=== PATIENT | male | born 1955 | race Caucasian/White ===

== ENCOUNTER 2017-06-21 05:55 | Inpatient (IN) ==
--- NOTE | 2017-06-18 09:15 | EKG Report ---
Stationary ECG Study [facility] Test Date: 06/18/2017 9:16:38 AM Pat Name: MALENA HENAO Department: Room: Gender: M Manager Area: GRICELDA RAI : 1955 Requested by: Jitendra Bey Order Number: [id number] Reading MD: GALE BECK Intervals [place] Rate: 67 P: 51 NE: 140 QRS: 65 QRSD: 134 T: 19 QT: 382 QTc: 398 Interpretive Statements SINUS RHYTHM RIGHT BUNDLE BRANCH BLOCK Electronically Signed On 06-18-17 17:04:34 CDT by GALE BECK [email or web address]
--- NOTE | 2017-06-18 09:17 | XRay Report ---
XR chest 2V Indication: Respiratory preoperative evaluation Comparison: 11 June 2017 Findings: The heart and mediastinum are normal in size and configuration. The pulmonary vascularity is normal in caliber. No lung infiltrates, effusions, pneumothorax or other abnormality is demonstrated. Impression: Normal chest x-ray PROCEDURE INTERPRETED AT [facility] DEPARTMENT OF RADIOLOGY Final Report Signed by: Dr. Osbaldo Mcadams
[2017-06-18 09:33] LABS: Basophils % 0.2 % (0.0-0.8); Eosinophils % 0.2 % (0.00-10.9); Hematocrit 37.7 VOL% (42.0-52.0); Hemoglobin 12.1 GM/DL (14.0-18.0); Immature Granulocytes % 2.1 %; Immature Granulocytes Absolute 0.27 #; Lymphocytes # 1.7 10*3/uL (1.4-4.0); Lymphocytes % 13.8 % (21.2-54.2); Mean Corpuscular HGB Conc 32.1 GM/DL (32-36); Mean Corpuscular Hemoglobin 26 PG (27-34); Mean Corpuscular Volume 80.4 FL (87-102); Mean Platelet Volume 9.6 FL (9.6-12.0); Monocytes # 0.7 10*3/uL (0.11-0.8); Monocytes % 5.5 % (1.7-12.7); Neutrophils # 9.9 10*3/uL (1.4-7.4); Neutrophils % 78.2 % (38.7-73.9); Platelet Count 243 T/CUMM (130-400); Red Blood Count 4.69 MC/CUMM (3.8-5.5); Red Cell Distribution Width 14.2 % (9.3-17.3); White Blood Count 12.6 T/CUMM (4-12)
[2017-06-18 10:14] LABS: Alanine Aminotransferase 31 U/L (16-61); Albumin 3.3 G/DL (3.4-5.0); Alkaline Phosphatase 59 U/L (45-117); Aspartate Amino Transferase 16 U/L (0-37); Bilirubin,Total < 0.39 MG/DL (0.2-1.0); Blood Urea Nitrogen 16 MG/DL (7-18); Calcium 8.2 MG/DL (8.5-10.1); Glucose 109 MG/DL (74-106); Osmolality,Calculated 274.8 MOS/KG (273-304); Potassium 3.7 MMOL/L (3.5-5.1); Sodium 137 MMOL/L (136-145); Total Protein 6.2 G/DL (6.4-8.3)
[~2017-06-21 05:55] MED LIST: ERTAPENEM 1,000 MG in SODIUM CHLORIDE 0.9% 100 ML IV ONE
[2017-06-21] MEDS ORDERED: ALVIMOPAN 12 MG CAPSULE PO ONE (06:00)
[2017-06-21] MEDS ORDERED: ERTAPENEM 1,000 MG in SODIUM CHLORIDE 0.9% 100 ML IV ONE (06:00)
[2017-06-21] MEDS ORDERED: ERTAPENEM 1,000 MG VIAL ONE (06:03)
[2017-06-21] MEDS ORDERED: ALVIMOPAN 12 MG CAPSULE ONE (06:03)
[2017-06-21] MEDS ORDERED: SODIUM CHLORIDE 0.9% 100 ML IV ONE (06:07)
[2017-06-21] MEDS: LACTATED RINGERS 1,000 ML IV SCH ×3 (06:45→19:17)
[2017-06-21] MEDS ORDERED: SCOPOLAMINE 1.5 MG PATCH TRANSDERM ONE (06:46)
[2017-06-21] MEDS ORDERED: FAMOTIDINE 20 MG/2 ML VIAL IV ONE (06:46)
[2017-06-21] MEDS ORDERED: FAMOTIDINE 20 MG/2 ML VIAL IV STA (06:47)
[2017-06-21] MEDS ORDERED: SCOPOLAMINE 1.5 MG PATCH TRANSDERM STA (06:47)
--- NOTE | 2017-06-21 06:49 | History and Physical Update ---
History and Physical Update - History and Physical H&P was reviewed, the patient examined and there: are no changes in the patients condition since last H&P was completed. - Dictation Physical: refer to scanned H&P
[2017-06-21] MEDS ORDERED: METOCLOPRAMIDE 10 MG/2 ML VIAL ONE (06:55)
[2017-06-21] MEDS ORDERED: HYDROCORTISONE 100 MG VIAL ONE (06:57)
[2017-06-21] MEDS ORDERED: TISSUE ADHESIVE 1 EACH APPLICATOR TOP ONE (09:05)
[2017-06-21] MEDS ORDERED: SUGAMMADEX 200 MG/2 ML VIAL IV ONE (09:20)
[2017-06-21] MEDS ORDERED: DESFLURANE 1 UNIT/15 MINUTE INH ONE (09:47)
[2017-06-21] MEDS ORDERED: MIDAZOLAM 2 MG/2 ML VIAL ONE (09:47)
[2017-06-21] MEDS ORDERED: SUCCINYLCHOLINE 200 MG/10 ML VIAL ONE (09:48)
[2017-06-21] MEDS ORDERED: ACETAMINOPHEN 1,000 MG/100 ML VIAL IV ONE (09:48)
[2017-06-21] MEDS ORDERED: LACTATED RINGERS 2,000 ML IV ONE (09:48)
[2017-06-21] MEDS ORDERED: fentaNYL 100 MCG/2 ML VIAL ONE (09:48)
[2017-06-21] MEDS ORDERED: ROCURONIUM 100 MG/10 ML VIAL IV ONE (09:48)
[2017-06-21] MEDS ORDERED: ONDANSETRON 4 MG/2 ML VIAL ONE (09:48)
[2017-06-21] MEDS ORDERED: LABETALOL 100 MG/20 ML VIAL IV ONE (09:48)
[2017-06-21] MEDS ORDERED: PROPOFOL 200 MG/20 ML VIAL IV ONE (09:49)
[2017-06-21] MEDS ORDERED: HYDROmorphone 2 MG/1 ML VIAL ONE (10:15)
[2017-06-21] MEDS: HYDROmorphone 2 MG/1 ML VIAL IV PRN ×4 (10:16→10:31)
--- NOTE | 2017-06-21 10:18 | Operative Note ---
Date of procedure: 06/21/17 Pre-op diagnosis: Right colon cancer Post-op diagnosis: same Procedure: Preoperative diagnosis Right colon cancer Postoperative diagnosis Same Procedures performed 1. Robotic assisted laparoscopic lysis of adhesions 2. Robotic assisted laparoscopic right colectomy Complications None apparent Specimen Right colon Findings There were adhesions in the abdomen between the omentum and the lower abdomen and right lower quadrant that were taken down with sharp dissection. Medial to lateral dissection was performed and the specimen was opened on the back table with adequate margins. There was no evidence of metastatic disease in the liver Blood loss 25 mL Anesthesia GETA Indications Right colon cancer Description of procedure The patient was taken to the operating room and transferred to the operating table in supine position. Pressure points were padded and SCDs were placed lower extremities. General endotracheal anesthesia was administered. A Nash catheter was placed with clear urine output. The patient was prepped and draped with chlorhexidine. Preoperative antibiotics were administered and a timeout was performed. The abdomen was entered in a supraumbilical paramedian location on the left side of the abdominal wall with a Veress needle. An 8 mm skin incision was made with an 11 blade scalpel and penetrating towel clips were used to grasp the abdominal wall skin Veress needle was used to enter the peritoneal cavity confirmed by double click technique. Aspiration was negative. Saline drop test confirmed intraperitoneal location. The Veress needle was used to insufflate the abdominal cavity to 15 mmHg with an initial pressure of 2 mmHg. The Veress needle was removed and a robotic 8 mm trocar was placed blindly. Laparoscope was inserted. There is no evidence of Veress needle or trocar injury. Diagnostic laparoscopy was performed. There was no evidence of Veress needle or trocar injury. There is no evidence of metastatic disease in the liver or peritoneum. The 12 mm left upper quadrant abdominal trochars placed under direct visualization after local anesthetic was administered and the 5 mm social science research assistant trocar was placed in the left lower quadrant. The 8 mm left lower quadrant trocar was then placed. The robot was docked. The cecum was retracted and the ileocolic pedicle was identified and divided with a vascular stapler. The duodenum was visualized during this ligation. Adhesions were taken down with sharp dissection. Medial to lateral dissection was performed with visualization of the duodenum and the dissection was then carried up towards the transverse colon. The colon was transected after the omentum was taken off the colon with electrocautery using a PEACE stapler. The lateral attachments of the colon were then divided down to the pelvis. The terminal ileum was transected also with a PEACE stapler. An intracorporeal anastomosis was completed by making an enterotomy and colotomy in the GI stapler was used to staple the anastomosis side to side. The enterotomy was closed with the PEACE stapler. The mesentery was inspected and was not twisted. The mesenteric defect was left open. The robot was undocked. The specimen was extracted through a left upper quadrant incision extended from the 12 mm trocar site through an Alfonso retractor. The fascial incision was closed with a 0 non-looped PDS suture in 2 layers. The skin incisions were closed with 4-0 monocryl sutures. The patient's Nash was removed and she was awakened from anesthesia and transferred to recovery. Postoperative plan Advance diet as tolerated Pain control Anesthesia: AZRA Surgeon / Physician: Jitendra Bey Estimated blood loss: minimal Specimens: other (right colon) Condition: stable Disposition: PACU Results - Labs CBC & BMP: 06/18/17 09:22 06/18/17 09:22 Discharge Plan - Discharge Medications No Action Omeprazole [Prilosec] 20 mg PO QAM Cholecalciferol (Vitamin D3) [Vitamin D3] 1,000 unit PO QAM Krill/[place]-3/Dha/Epa/Lipids [Krill Oil 300 mg Softgel] 1 each PO DAILY Calcium Carbonate [Calcium] 500 mg PO QAM Alendronate [Fosamax] 70 mg PO Q7DAY Levofloxacin Tab [Levaquin Tab] 750 mg PO DAILY #10 tablet predniSONE TAB [PredniSONE] 20 mg PO DAILY #15 tablet - Follow Up or Referral - Forms/Instructions
--- NOTE | 2017-06-21 10:20 | Anesthesia Post-Op ---
Anesthesia Post OP - Post Ansesthetic Evaluation Patient seen in post op: Yes Resp: within normal limits CV: within normal limits Mental: within normal limits Temp: within normal limits [id number]: within normal limits Nausea and Vomiting: within normal limits Pain: within normal limits
[2017-06-21] MEDS: MORPHINE 10 MG/1 ML VIAL IV PRN ×2 (11:00→13:00)
[2017-06-21] MEDS ORDERED: KETOROLAC 30 MG/1 ML VIAL IV ONE (14:03)
[2017-06-21] MEDS ORDERED: PROMETHAZINE 25 MG/1 ML VIAL IM PRN (15:03)
[2017-06-21] MEDS ORDERED: ONDANSETRON 4 MG/2 ML VIAL IV PRN (15:03)
[2017-06-21] MEDS ORDERED: HYDROmorphone 2 MG/1 ML VIAL IV PRN (15:03)
--- NOTE | 2017-06-21 18:30 | Event Note ---
Courtesy visit. Patient seen after right hemicolectomy done earlier today. Surgery findings reviewed. He is comfortable at present. Please call if needed.
[2017-06-21] MEDS: ALVIMOPAN 12 MG CAPSULE PO SCH (20:50)
[2017-06-21] MEDS: KETOROLAC 15 MG/1 ML VIAL IV SCH (20:50)
[2017-06-22] MEDS: KETOROLAC 15 MG/1 ML VIAL IV SCH (02:24)
[2017-06-22] MEDS: LACTATED RINGERS 1,000 ML IV SCH (03:30)
[2017-06-22 06:29] LABS: Basophils % 0.2 % (0.0-0.8); Eosinophils # 0.1 10*3/uL (0.0-0.87); Eosinophils % 0.8 % (0.00-10.9); Hematocrit 30.5 VOL% (42.0-52.0); Hemoglobin 9.8 GM/DL (14.0-18.0); Immature Granulocytes % 0.5 %; Immature Granulocytes Absolute 0.06 #; Lymphocytes # 1.8 10*3/uL (1.4-4.0); Lymphocytes % 16.1 % (21.2-54.2); Mean Corpuscular HGB Conc 32.1 GM/DL (32-36); Mean Corpuscular Hemoglobin 26 PG (27-34); Mean Corpuscular Volume 80.9 FL (87-102); Mean Platelet Volume 9.8 FL (9.6-12.0); Monocytes % 9.4 % (1.7-12.7); Platelet Count 159 T/CUMM (130-400); Red Blood Count 3.77 MC/CUMM (3.8-5.5); Red Cell Distribution Width 14.3 % (9.3-17.3)
[2017-06-22 06:57] LABS: Osmolality,Calculated 278.5 MOS/KG (273-304); Potassium 4.4 MMOL/L (3.5-5.1)
--- NOTE | 2017-06-22 07:20 | Event Note ---
General Surgery Progress Note Chief complaint This patient is a 62-year-old man admitted following robotic assisted laparoscopic right colectomy for colon cancer on 06/21/2017 Interval history No events overnight. Patient is tolerating his diet without any nausea or vomiting. He has walked in the hallway twice. Vital signs are normal. He is passing some gas but has not had a bowel movement yet. Hemoglobin is down to 9.8 this morning from 12 preop. Physical exam The patient is afebrile with normal vital signs Chest is clear Heart is regular Abdomen is soft and appropriately tender. There is bruising around the incisions but no erythema or drainage. Bowel sounds are hypoactive. The abdomen is nondistended. Labs Reviewed, as above Imaging None new Assessment and plan Repeat hemoglobin at noon Discharge home if tolerates breakfast and repeat hemoglobin at noon is stable
[2017-06-22] MEDS: ALVIMOPAN 12 MG CAPSULE PO SCH (08:55)
[2017-06-22] MEDS ORDERED: CALCIUM (CARBONATE) 500 MG TABLET PO SCH (09:00)
[2017-06-22] MEDS ORDERED: ENOXAPARIN 40 MG/0.4 ML SYRINGE SUBCUT SCH (09:00)
[2017-06-22] MEDS ORDERED: PANTOPRAZOLE 40 MG TABLET PO SCH (09:00)
[2017-06-22] MEDS ORDERED: EPA PO SCH (09:00)
[2017-06-22] MEDS ORDERED: DHA PO SCH (09:00)
[2017-06-22] MEDS ORDERED: LIPIDS PO SCH (09:00)
[2017-06-22] MEDS ORDERED: OMEGA PO SCH (09:00)
[2017-06-22] MEDS ORDERED: CHOLECALCIFEROL 1,000 UNIT TABLET PO SCH (09:00)
[2017-06-22] MEDS ORDERED: [UNRECOGNIZED DRUG - OTHER] PO SCH (09:00)
[2017-06-22] MEDS ORDERED: KRILL PO SCH (09:00)
[2017-06-22 12:26] LABS: Hematocrit 30.2 VOL% (42.0-52.0); Hemoglobin 9.7 GM/DL (14.0-18.0)
--- NOTE | 2017-06-22 14:30 | Discharge Summary ---
Hospital Course - Hospital Course Hospital Course: This patient was admitted following robotic assisted laparoscopic right colectomy and he did well postoperatively. He was tolerating his diet and his hemoglobin stabilized and he was discharged home Specialty Discharge - Follow Up or Referrals Follow up with: Jitendra Bey MD [Physician] - 07/07/17 3:00 pm Discharge Plan - Discharge Data Disposition: Disch To Home/Self Care Condition at Discharge: Discharge Diet: advance to your usual diet Activity: no lifting Hygiene: may shower Weight Bearing at Discharge: weight bear as tolerated Driving: other (Do not drive or operate heavy machinery for at least 24 hours and after you are off of narcotic pain medications.) Contact your physician if you experience:: fever over 101, Difficulty voiding, Redness or swelling, Nausea/Vomiting, Shortness of breath, Bleeding, pain uncontrolled by pain medications Wound / Dressing Care Instructions: It is okay to shower. Do not scrub the incision aggressively or submerge it under water. - Discharge Medications New HYDROcodone/ACETAMIN 7.5-325 [Hurt 7.5-325] 1 tablet PO Q4H PRN #30 tablet PRN Reason: Pain Moderate (4-7) Continue Omeprazole [Prilosec] 20 mg PO QAM Cholecalciferol (Vitamin D3) [Vitamin D3] 1,000 unit PO QAM Krill/[place]-3/Dha/Epa/Lipids [Krill Oil 300 mg Softgel] 1 each PO DAILY Calcium Carbonate [Calcium] 500 mg PO QAM Alendronate [Fosamax] 70 mg PO Q7DAY - Follow Up or Referral Follow Up: Jitendra Bey MD [Physician] - 07/07/17 3:00 pm - Forms/Instructions Instructions: Low Fiber Diet (GEN), Colectomy (DC) Exam - Constitutional Vitals: Period Temp Pulse Resp BP Sys/[place] Pulse Ox Last 24 Hr 97.5 F-100.9 F 59-89 16-20 100-133/51-78 92-100 General appearance: no acute distress, over weight - Head Head exam: Present: normal inspection, normocephalic - Eye Eye exam: Present: EOMI Pupils: Present: ALENA - ENT ENT exam: Present: normal exam - Neck Neck exam: Present: normal inspection - Respiratory Respiratory exam: Present: clear to auscultation bilaterally. Absent: accessory muscle use, chest wall tenderness - Cardiovascular Cardiovascular exam: Present: regular rate and rhythm. Absent: systolic murmur , tachycardia - GI/Abdominal GI/Abdominal exam: Present: tenderness (Expected postoperative tenderness), soft. Absent: rebound - Extremities Exam Extremities exam: Present: normal inspection, normal capillary refill - Back Exam Back exam: Present: normal inspection - Neurological Exam Neurological exam: Present: alert, oriented X3 - Psychiatric Psychiatric exam: Present: normal affect, normal mood - Skin Skin exam: Present: normal color, warm Discharge Results Labs on day of discharge: Labs from last 24 hours 06/22/17 06/22/17 06/22/17 12:06 06:07 06:07 WBC 11.0 RBC 3.77 L Hgb 9.7 L 9.8 L D Hct 30.2 L 30.5 L MCV 80.9 L MCH 26 L MCHC 32.1 RDW 14.3 Plt Count 159 D MPV 9.8 Neut % (Auto) 73.0 Lymph % (Auto) 16.1 L [place] % (Auto) 9.4 Eos % (Auto) 0.8 Baso % (Auto) 0.2 Neut # (Auto) 8.0 H Lymph # (Auto) 1.8 [place] # (Auto) 1.0 H Eos # (Auto) 0.1 Baso # (Auto) 0.0 Immature Gran % 0.5 Nucleated RBC % 0.0 Immature Gran # 0.06 Nucleated RBCs # 0.00 Immature Plt Fraction 0.0 Sodium 139 Potassium 4.4 Chloride 106 Carbon Dioxide 29 Anion Gap 8.4 BUN 17 Creatinine 1.00 GFR Calculation 97 BUN/Creatinine Ratio 17.00 Glucose 92 POC Glucose Calculated Osmolality 278.5 Calcium 8.0 L 06/21/17 16:02 WBC RBC Hgb Hct MCV MCH MCHC RDW Plt Count MPV Neut % (Auto) Lymph % (Auto) [place] % (Auto) Eos % (Auto) Baso % (Auto) Neut # (Auto) Lymph # (Auto) [place] # (Auto) Eos # (Auto) Baso # (Auto) Immature Gran % Nucleated RBC % Immature Gran # Nucleated RBCs # Immature Plt Fraction Sodium Potassium Chloride Carbon Dioxide Anion Gap BUN Creatinine GFR Calculation BUN/Creatinine Ratio Glucose POC Glucose 135 H Calculated Osmolality Calcium DS: Provider Date of admission: 06/21/17 05:55 Primary care physician: Bro Lawson MD Attending physician on admission: Jitendra Bey MD Consults: 06/21/17 15:03 Consult to Physician [CONS] Routine Comment: courtesty consult Consulting Provider: Krishna Whyte Consulting Provider Notified: Yes When should Consulting Provider be notified: Now Person Notified: woody called Date Notified: 06/21/17 Time Notified: 16:03 Discharging clinician: Jitendra Bey MD Expected date of discharge: 06/22/17
[2017-06-22 15:30] VITALS: BP 123/64
--- NOTE | 2017-06-23 18:16 | Pathology Report from [facility] ---
[facility] [place] : [id number] PATIENT NAME : Vikram Mtz ORDERING DR : Jitendra Bey MD CLINICAL HX: Colon cancer POST-OP DX: Same SPECIMEN INFO: Right colon GROSS DESCRIPTION: Received in formalin labeled with the patients name VIKRAM MTZ and consists of a portion of colon which includes the cecum (33.5 x 3.5 cm) and attached terminal ileum (8.0 x 2.3 cm) and appendix (3.8 x 0.5 cm). The colon has been previously opened revealing a 3.5 x 2.5 cm sessile mass within the cecum which comes to within 11.5 cm of the proximal margin. Grossly the mass appears to invade the bowel wall and comes to within 3.0 cm of the mesenteric margin. Sections submitted: A proximal margin, B distal margin, C mesenteric margin, D thru F mass, G appendix. Cassetes H and I lymph nodes. ( added 06/22/2017). DIAGNOSIS FOR VIKRAM MTZ: COLON, PARTIAL ILEOCOLECTOMY (Intact, 41.5 x 3.5 cm): TYPE: Invasive mucinous adenocarcinoma. TUMOR SITE: Cecum. TUMOR SIZE : 3.5 x 2.5 cm. MACROSCOPIC TUMOR PERFORATION: Absent. HISTOLOGIC GRADE: Moderately differentiated. TUMOR EXTENSION: Invades into the pericolic fat without serosal involvement. MARGINS, PROXIMAL: Uninvolved by carcinoma, distance = 11.5 cm. DISTAL: Uninvolved by carcinoma, distance = 30 cm. MESENTERIC: Uninvolved by carcinoma, distance = 3 cm. TREATMENT EFFECT: No known presurgical therapy. LYMPHOVASCULAR INVASION: Not identified. PERINEURAL INVASION: Not identified. TUMOR DEPOSITS: Not identified. TUMOR BUDDING: Number of tumor buds in 1 hotspot field = 3 (Low score: 0-4). LYMPH NODES: NUMBER EXAMINED: 17; NUMBER INVOLVED: 0 (0/17). AJCC (2018) PATHOLOGIC STAGE STAGE IIA ( [id number]). COLLECTED DATE: 06/21/2017 [facility] REPORT DATE: 06/23/2017 ELECTRONICALLY SIGNED BY: Beverly Osborne M.D. 06/23/2017 - 10:44:02 [facility]
== END 2017-06-22 16:00 | disposition home or self-care (01) | DRG 331 ==
LOC: N.OR 05:55 → N.SDSINP 05:55 → EDSTATUS 07:30 → N.3E 14:26
PROVIDERS: ADMIT Surgery; ATTEND Surgery

== ENCOUNTER 2017-06-25 17:55 | Inpatient (IN) ==
--- NOTE | 2017-06-25 19:54 | XRay Report ---
History is abdominal pain Abdomen, 2 views Multiple air-filled loops of small bowel measure up to 3.8 cm with areas of the bone thickening There is relatively little air in the colon No free air or organomegaly seen Multiple scattered air-fluid levels present Impression: Small bowel obstruction PROCEDURE INTERPRETED AT [facility] [place] DEPARTMENT OF RADIOLOGY Final Report Signed by: Dr. Briana Berg
--- NOTE | 2017-06-25 20:14 | Emergency Department Note ---
IAshley Rolonda, am scribing for, and in the presence of, Shefali Solomon DO 19: 57. IJuanito Debra, DO, personally performed the services described in this documentation, ascribed by Adry Ramirez in my presence, and it is both accurate and complete . Arrival - Arrival Chief Complaint: Nausea/Vomiting/Diarrhea Stated Complaint: Vomiting-recent surgery ED Nursing Triage Note: C/O Having nausea since last evening., states he started vomiting ast 0100 today./, states when he eats something he gets nauseated., states had colon surgery on wednesday by dr. bey., denies having increase temp at home., denies having diarrhea., + abdomen pain , Mode of Arrival: Wheelchair Limitations: No Limitations Source: Patient, Old Records Reviewed, RN Notes Reviewed - History of Present Illness HPI Narrative: Pt is a 62 y/o male who presents to the ED with c/o N/V with an onset of earlier this morning. Pt has a PMHx of Colon CA and a SHx of partial colectomy. Pt states that he had a partial colectomy Wednesday and was d/c from the hospital Wednesday. Pt states that the sxs began earlier this morning and that he took pain medication with no relief. Pt states that he has associated sxs of abdominal cramps and weakness. No other complaint/pain in ED. Onset (ago): hour(s) Consistency: constant Severity: moderate Severity scale (1-10): 5 Allergies/Adverse Reactions: Allergies Allergy/AdvReac Type Severity Reaction Status Date / Time Erythromycin Base Allergy Intermediate RASH MOUTH Verified 06/25/17 18:10 Home Medications: Home Medications Medication Instructions Recorded Confirmed Type Alendronate [Fosamax] 70 mg PO Q7DAY 06/11/17 06/21/17 History Calcium Carbonate [Calcium] 500 mg PO QAM 06/11/17 06/21/17 History Cholecalciferol (Vitamin D3) 1,000 unit PO QAM 06/11/17 06/21/17 History [Vitamin D3] Omeprazole [Prilosec] 20 mg PO QAM 06/11/17 06/21/17 History Krill/[place]-3/Dha/Epa/Lipids 1 each PO DAILY 06/18/17 06/21/17 History [Krill Oil 300 mg Softgel] HYDROcodone/ACETAMIN 7.5-325 1 tablet PO Q4H PRN #30 tablet 06/22/17 Rx [[place] 7.5-325] Review of System - Review of System 12 point system: reviewed and no additional remarkable complaints except as stated - Review of System Constitutional: Present: weakness. Absent: fever Eyes: Absent: pain Head/Ears/Nose/Throat: Absent: earache Respiratory: Absent: cough Cardiovascular: Absent: chest pain Gastrointestinal: Present: abdominal pain, nausea, vomiting Genitourinary male: Absent: dysuria Musculoskeletal: Absent: arm pain, back pain Skin: Absent: rash Neurological: Absent: headache Psychiatric: Absent: anxiety Endocrine: Absent: cold intolerance Hematological/Lymphatic: Absent: easy bleeding Allergic/Immunologic: Absent: facial swelling Medical,Surgical,& Family Hx - Medical History Cardio: No history of: Hypertension Neurology: No history of: Seizures HEENT: History of: Eye Problem (GLASSES), Dental Problems (CAPPED TEETH.) Endocrine: History of: Dyslipidemia (SLIGHT ELEVATION.), Endocrine Problems ( LOW BLOOD SUGAR.) No history of: Diabetes Mellitus (IDDM), Diabetes Mellitus (NIDDM) Respiratory: History of: Pneumonia (ASPIRATION PNEU AFTER COLONOSCOPY 06/11/2017.) , Respiratory Problems (FLU VAC-YES 2015; PNEU VAC-NO.) No history of: Asthma Renal: No history of: Renal Failure, Renal Problems Gastrointestinal: History of: GERD, Polyps, Gastrointestinal Cancer, GI Problems (hiatal hernia) No history of: Gastrointestinal Bleed Musculoskeletal: History of: Back/Neck Problems, Osteoporosis Other: History of: Anesthesia Reactions (SEVERE NAUSEA AND VOMITING.), Cancer ( COLON CA) - Surgical History HEENT Surgeries: Surgical HX of: Tonsilectomy & Adenoidectomy Abdominal Surgeries: Surgical HX of: Abdominal Surgery (colectomy), Colonoscopy , EGD Orthopedic Surgeries: Surgical HX of;: Implanted Devices (TITIANIUM IN BACK.), Orthopedic Surgery (right shoulder surgery 2011 at [place]), Spinal Surgery (back surgery 06/07/2015) - Family History Family History: Reports;: Family Cancer (father-prostate), Family Diabetes ( father), Family Heart Disease (father) - Social History Smoking Status: Never smoker Frequency of Alcohol Use: None Type of Drug Use: None Exam Vital Signs: Vital Signs Temperature 98.6 F 09/22/17 18:49 Pulse Rate 116 H 06/25/17 18:49 Respiratory Rate 20 06/25/17 18:49 Blood Pressure 124/95 06/25/17 18:49 O2 Sat by Pulse Oximetry 98 06/25/17 18:49 - General General appearance: alert, in no apparent distress - Head Head exam: Present: atraumatic, normocephalic - Eye Eye exam: Present: PERRL, EOMI - ENT ENT exam: Present: mucous membranes dry. Absent: mucous membranes moist - Neck Neck exam: Present: full ROM. Absent: tenderness - Chest Chest inspection: Present: symmetric chest wall rise. Absent: tenderness - Respiratory Respiratory exam: Present: normal lung sounds bilaterally. Absent: wheezes - Cardiovascular Cardiovascular exam: Present: normal rhythm, tachycardia (mild) - Abdominal Exam Abdominal exam: Present: distention, tenderness (diffused) - Extremities Exam Extremities exam: Present: full ROM. Absent: tenderness - Back Exam Back exam: Present: full ROM. Absent: tenderness - Neurological Exam Neurological exam: Present: alert, oriented X3, CN II-XII intact - Psychiatric Psychiatric exam: Present: normal affect, normal mood - Skin Skin exam: Present: warm, dry, intact, pallor Course Course Narrative: spoke with DR Bae who will admit pt for DR Bey Results - Labs Lab Results: I have reviewed the patients labs - Diagnostic Findings Procedure: Abdominal x-ray: report reviewed by me (Small bowel obstruction.) Disposition Clinical Impression: Small bowel obstruction Case discussed with: patient Disposition: Still a Patient Condition: Stable Time of Disposition: 20:13
[2017-06-25] MEDS ORDERED: PROMETHAZINE 25 MG/1 ML VIAL IM PRN (20:16)
[2017-06-25] MEDS ORDERED: ONDANSETRON 4 MG/2 ML VIAL IV PRN (20:16)
[2017-06-25 20:17] LABS: Basophils % 0.2 % (0.0-0.8); Eosinophils # 0.1 10*3/uL (0.0-0.87); Eosinophils % 0.9 % (0.00-10.9); Hematocrit 38.4 VOL% (42.0-52.0); Hemoglobin 12.5 GM/DL (14.0-18.0); Immature Granulocytes % 0.7 %; Immature Granulocytes Absolute 0.12 #; Lymphocytes # 1.4 10*3/uL (1.4-4.0); Lymphocytes % 8.6 % (21.2-54.2); Mean Corpuscular HGB Conc 32.6 GM/DL (32-36); Mean Corpuscular Hemoglobin 26 PG (27-34); Mean Corpuscular Volume 78.9 FL (87-102); Mean Platelet Volume 9.4 FL (9.6-12.0); Monocytes # 1.3 10*3/uL (0.11-0.8); Monocytes % 7.7 % (1.7-12.7); Neutrophils # 13.5 10*3/uL (1.4-7.4); Neutrophils % 81.9 % (38.7-73.9); Platelet Count 227 T/CUMM (130-400); Red Blood Count 4.87 MC/CUMM (3.8-5.5); Red Cell Distribution Width 14.6 % (9.3-17.3); White Blood Count 16.4 T/CUMM (4-12)
[2017-06-25] MEDS ORDERED: ONDANSETRON 4 MG/2 ML VIAL ONE (20:24)
[2017-06-25] MEDS ORDERED: SODIUM CHLORIDE 0.9% 1,000 ML IV STA (20:27)
[2017-06-25] MEDS ORDERED: ONDANSETRON 4 MG/2 ML VIAL IV STA (20:27)
[2017-06-25 20:44] LABS: Bilirubin,Total 0.6 MG/DL (0.2-1.0); Calcium 8.7 MG/DL (8.5-10.1); Osmolality,Calculated 276.7 MOS/KG (273-304); Potassium 4.2 MMOL/L (3.5-5.1); Total Protein 6.3 G/DL (6.4-8.3)
[2017-06-25] MEDS ORDERED: MORPHINE 2 MG/1 ML SYRINGE IV ONE (21:59)
[2017-06-25] MEDS: DEXTROSE 5% NACL 0.45% 1,000 ML IV SCH (22:17)
[2017-06-26] MEDS ORDERED: ONDANSETRON 4 MG/2 ML VIAL IV PRN (00:28)
[2017-06-26] MEDS ORDERED: HYDROmorphone 2 MG/1 ML VIAL IV PRN (00:28)
--- NOTE | 2017-06-26 00:37 | General Surg History&Physical ---
Assessment and Plan - Time spent with patient Time spent with patient: Less than 30 minutes (1) Postoperative ileus Status: Acute Assessment and plan: Impression: Abdominal distention with postoperative ileus and nausea and vomiting 2. Status post right hemicolectomy Plan: IV fluids and supportive care We will consider the possibility of a suppository NG tube if he continues to have nausea and vomiting Current Visit: Yes History of Present Illness Chief complaint: Abdominal crampy pain with nausea and vomiting History of present illness: Mr. Mtz is a 62 year old male white who underwent on Wednesday a robotic right colectomy for cancer and was sent home on on Wednesday. He has not had good bowel movement since he has been home a little bit at times but then yesterday began to develop nausea and vomiting and crampy abdominal pain. He ever since surgeries had some crampy abdominal pain but certainly he had nausea and vomiting onset on Wednesday that brought him to the emergency room. At this point he is resting with no nausea or unusual pain at this time but has some abdominal distention. Certainly his plain films were suggestive small bowel obstruction but prior this is an ileus in relation to his surgery. He is admitted for some IV fluids. Did not put an NG tube down but if he continues to have nausea and vomiting may have to do that. Home Medications Medication Instructions Recorded Confirmed Type Alendronate [Fosamax] 70 mg PO WE 06/11/17 06/25/17 History Calcium Carbonate [Calcium] 500 mg PO QAM 06/11/17 06/25/17 History Cholecalciferol (Vitamin D3) 1,000 unit PO QAM 06/11/17 06/25/17 History [Vitamin D3] Krill/[place]-3/Dha/Epa/Lipids 1 each PO DAILY 06/18/17 06/25/17 History [Krill Oil 300 mg Softgel] HYDROcodone/ACETAMIN 7.5-325 1 tablet PO Q4H PRN #30 tablet 06/22/17 06/25/17 Rx [[place] 7.5-325] Pantoprazole Tab [Protonix Tab] 40 mg PO BID 06/25/17 06/25/17 History Allergies Allergy/AdvReac Type Severity Reaction Status Date / Time Erythromycin Base Allergy Intermediate RASH MOUTH Verified 06/25/17 18:10 Medical,Surgical,& Family Hx - Medical History Cardio: No history of: Hypertension Neurology: No history of: Seizures HEENT: History of: Eye Problem (GLASSES), Dental Problems (CAPPED TEETH.) Endocrine: History of: Dyslipidemia (SLIGHT ELEVATION.), Endocrine Problems ( LOW BLOOD SUGAR.) No history of: Diabetes Mellitus (IDDM), Diabetes Mellitus (NIDDM) Respiratory: History of: Pneumonia (ASPIRATION PNEU AFTER COLONOSCOPY 06/11/2017.) , Respiratory Problems (FLU VAC-YES 2015; PNEU VAC-NO.) No history of: Asthma Renal: No history of: Renal Failure, Renal Problems Gastrointestinal: History of: GERD, Polyps, Gastrointestinal Cancer, GI Problems (hiatal hernia) No history of: Gastrointestinal Bleed Musculoskeletal: History of: Back/Neck Problems, Osteoporosis Other: History of: Anesthesia Reactions (SEVERE NAUSEA AND VOMITING.), Cancer ( COLON CA) - Surgical History HEENT Surgeries: Surgical HX of: Tonsilectomy & Adenoidectomy Abdominal Surgeries: Surgical HX of: Abdominal Surgery (colectomy), Colonoscopy , EGD Orthopedic Surgeries: Surgical HX of;: Implanted Devices (TITIANIUM IN BACK.), Orthopedic Surgery (right shoulder surgery 2011 at [place]), Spinal Surgery (back surgery 06/07/2015) - Family History Family History: Reports;: Family Cancer (father-prostate), Family Diabetes ( father), Family Heart Disease (father) - Social History Smoking Status: Never smoker Frequency of Alcohol Use: None Type of Drug Use: None Exam - Constitutional Vitals: Period Temp Pulse Resp BP Sys/Domingo Pulse Ox Last 24 Hr 98.6 F-98.9 F 89-116 18-20 114-143/62-95 94-98 General appearance: mild distress - Head Head exam: Present: normal inspection - ENT ENT exam: Present: normal exam - Neck Neck exam: Present: normal inspection - Respiratory Respiratory exam: Present: clear to auscultation bilaterally, rales - Cardiovascular Cardiovascular exam: Present: RRR - GI/Abdominal GI/Abdominal exam: Present: distended, hypoactive bowel sounds, tenderness ( About the left upper quadrant incision), other (Abdomen is distended with some forearm firmness but yet saw) - Extremities Exam Extremities exam: Present: normal inspection - Back Exam Back exam: Present: normal inspection - Neurological Exam Neurological exam: Present: alert, oriented X3, CN II-XII intact - Skin Skin exam: Present: normal color, warm, dry 12 point system: reviewed and no additional remarkable complaints except as stated Quality Measures - VTE Contraindication to Pharmacological VTE Prophylaxis: High Risk of Bleeding Results - Labs CBC & BMP: 06/25/17 20:06 06/25/17 20:06 Lab Results: I have reviewed the past 24 hour labs
[2017-06-26 05:59] LABS: Basophils % 0.4 % (0.0-0.8); Eosinophils # 0.2 10*3/uL (0.0-0.87); Hematocrit 32.2 VOL% (42.0-52.0); Hemoglobin 10.5 GM/DL (14.0-18.0); Immature Granulocytes % 0.5 %; Immature Granulocytes Absolute 0.06 #; Lymphocytes # 1.5 10*3/uL (1.4-4.0); Lymphocytes % 12.8 % (21.2-54.2); Mean Corpuscular HGB Conc 32.6 GM/DL (32-36); Mean Corpuscular Hemoglobin 26 PG (27-34); Mean Corpuscular Volume 79.9 FL (87-102); Monocytes # 1.2 10*3/uL (0.11-0.8); Monocytes % 10.4 % (1.7-12.7); Neutrophils # 8.4 10*3/uL (1.4-7.4); Neutrophils % 73.9 % (38.7-73.9); Platelet Count 201 T/CUMM (130-400); Red Blood Count 4.03 MC/CUMM (3.8-5.5); Red Cell Distribution Width 14.6 % (9.3-17.3); White Blood Count 11.4 T/CUMM (4-12)
[2017-06-26 06:46] LABS: Calcium 7.7 MG/DL (8.5-10.1); Osmolality,Calculated 281.3 MOS/KG (273-304); Potassium 4.1 MMOL/L (3.5-5.1)
[2017-06-26] MEDS: DEXTROSE 5% NACL 0.45% 1,000 ML IV SCH ×2 (08:46→12:53)
[2017-06-26] MEDS: PANTOPRAZOLE 40 MG VIAL IV SCH (08:47)
--- NOTE | 2017-06-26 10:47 | XRay Report ---
History is abdominal pain Abdomen, 2 views Comparison 06/25/2017 There remain multiple air-fluid levels in dilated loops of small bowel measuring up to 3.0 cm slightly worsened in the interval. Relatively little air present in the colon No free air or organomegaly seen Impression: Slight worsening of small bowel obstruction PROCEDURE INTERPRETED AT [facility] DEPARTMENT OF RADIOLOGY Final Report Signed by: Dr. Briana Berg
--- NOTE | 2017-06-26 17:15 | Event Note ---
06/26/2017. Patient is generally much better with no complaint of crampy pains or nausea at this time. He had a large bowel movement mostly liquid this morning and has felt better ever since. Labs look in good shape abdomen is softer hypoactive bowel sounds present. At this point we will try him on some solid food if he tolerates that well without any symptoms but we may be able to send him home tomorrow.
[2017-06-26] MEDS: ACETAMINOPHEN 325 MG TABLET PO PRN (20:53)
[2017-06-27] MEDS: DEXTROSE 5% NACL 0.45% 1,000 ML IV SCH ×4 (00:45→20:41)
[2017-06-27] MEDS: PANTOPRAZOLE 40 MG VIAL IV SCH (08:04)
--- NOTE | 2017-06-27 10:31 | General Surgery Progress Note ---
Assessment and Plan - Time spent with patient Time spent with patient: Less than 30 minutes (1) Postoperative ileus Status: Acute Assessment and plan: Impression: Abdominal distention with postoperative ileus and nausea and vomiting 2. Status post right hemicolectomy Plan: IV fluids and supportive care We will consider the possibility of a suppository NG tube if he continues to have nausea and vomiting 06/27/2017. 1030 hrs. Patient appears to be stable at this point time a low-grade temp last night along with some rales and rhonchi present in the bases. The abdomen though looks a little more distended today with some hypoactive bowel sounds. He describes some crampy discomfort but still states that he has had a few small loose bowel movement stable at this time. He was unable to take solid food effectively without feeling crampy are full or distended a little bit more. At this point his ileus may not completely clear. Consider Reglan but I feel that may cramping more so wait on that and just encourage him to drink plenty liquids ambulate little bit and see if he can open on. Current Visit: Yes Subjective Patient reports: Present: pain is less, tolerating liquids well, bowel movement , afebrile, other (Still complains of some crampy pains.) Exam - Constitutional Vitals: Period Temp Pulse Resp BP Sys/Domingo Pulse Ox Last 24 Hr 98.1 F-100.4 F 78-90 18-21 110-137/65-77 94-98 General appearance: mild distress - Head Head exam: Present: normal inspection - ENT ENT exam: Present: normal exam - Neck Neck exam: Present: normal inspection - Respiratory Respiratory exam: Present: rales - Cardiovascular Cardiovascular exam: Present: RRR - GI/Abdominal GI/Abdominal exam: Present: distended, hypoactive bowel sounds, soft - Extremities Exam Extremities exam: Present: normal inspection - Back Exam Back exam: Present: normal inspection - Neurological Exam Neurological exam: Present: alert, oriented X3, CN II-XII intact - Skin Skin exam: Present: normal color, warm, dry Results - Labs CBC & BMP: 06/26/17 05:11 06/26/17 05:11 Lab Results: I have reviewed the past 24 hour labs Quality Measures - VTE Contraindication to Pharmacological VTE Prophylaxis: High Risk of Bleeding Specialty Discharge - Follow Up or Referrals
[2017-06-27] MEDS: ACETAMINOPHEN 325 MG TABLET PO PRN (15:32)
[2017-06-28 06:09] LABS: Basophils % 0.3 % (0.0-0.8); Eosinophils # 0.2 10*3/uL (0.0-0.87); Eosinophils % 1.1 % (0.00-10.9); Hematocrit 31.3 VOL% (42.0-52.0); Immature Granulocytes % 0.7 %; Immature Granulocytes Absolute 0.09 #; Lymphocytes # 1.1 10*3/uL (1.4-4.0); Lymphocytes % 8.7 % (21.2-54.2); Mean Corpuscular HGB Conc 31.9 GM/DL (32-36); Mean Corpuscular Hemoglobin 26 PG (27-34); Mean Corpuscular Volume 79.8 FL (87-102); Mean Platelet Volume 9.8 FL (9.6-12.0); Monocytes # 1.2 10*3/uL (0.11-0.8); Monocytes % 9.1 % (1.7-12.7); Neutrophils # 10.5 10*3/uL (1.4-7.4); Neutrophils % 80.1 % (38.7-73.9); Platelet Count 193 T/CUMM (130-400); Red Blood Count 3.92 MC/CUMM (3.8-5.5); Red Cell Distribution Width 14.4 % (9.3-17.3); White Blood Count 13.1 T/CUMM (4-12)
[2017-06-28 06:40] LABS: Calcium 7.8 MG/DL (8.5-10.1); Osmolality,Calculated 273.7 MOS/KG (273-304); Potassium 4.3 MMOL/L (3.5-5.1)
--- NOTE | 2017-06-28 07:17 | Event Note ---
This patient was admitted over the weekend with crampy abdominal pain and a picture of ileus versus bowel obstruction on x-rays. His CT scan demonstrates an area of significant narrowing at the anastomosis. I recommended revision of the anastomosis to the patient and his family.
[2017-06-28] MEDS ORDERED: SCOPOLAMINE 1.5 MG PATCH TRANSDERM ONE (07:58)
[2017-06-28] MEDS ORDERED: FAMOTIDINE 20 MG/2 ML VIAL IV ONE (07:58)
[2017-06-28] MEDS: DEXTROSE 5% NACL 0.45% 1,000 ML IV SCH ×4 (08:28→21:54)
[2017-06-28] MEDS: PANTOPRAZOLE 40 MG VIAL IV SCH (08:50)
--- NOTE | 2017-06-28 09:57 | XRay Report ---
History: Dyspnea Date: 06/28/2017 Study: Chest x-ray PA and lateral Comparison exam: June 18, 2017 The cardiomediastinal silhouette is unchanged when accounting for shallow inspiration. There is mild bilateral pleural effusion. There is some minor strandy subsegmental atelectasis in the lung bases. Shallow breath. Osseous structures are unchanged. There are nonspecific air-fluid levels in the partially visualized upper abdomen. Impression: Shallow inspiration. Mild subsegmental atelectasis in the lung bases. Mild bilateral pleural effusion PROCEDURE INTERPRETED AT [facility] DEPARTMENT OF RADIOLOGY Final Report Signed by: Dr. Angely Whyte
--- NOTE | 2017-06-28 11:11 | Operative Note ---
Date of procedure: 06/28/17 Pre-op diagnosis: Anastomotic narrowing after right colectomy Post-op diagnosis: same Procedure: Preoperative diagnosis Anastomotic narrowing resulting in partial bowel obstruction after right colectomy Postoperative diagnosis Same Procedures performed 1. Laparotomy 2. Revision of ileocolic anastomosis with resection of prior anastomosis Findings The terminal ileum anastomosis had kinked on itself and cause narrowing of the anastomosis. There was patency of the anastomotic lumen itself but I thought the best thing to do would be to revise this and the ileum was transected more proximally to the anastomosis as well as the transverse colon more distally and the anastomosis was revised with a stapled [id number]-[id number] anastomosis. The mesentery defect was large and was left open because it was friable from prior surgery. Complications None apparent Specimen Ileocolic anastomosis Blood loss 20 mL Anesthesia GETA Indications This patient had a prior right colectomy and was readmitted to the hospital after discharge with symptoms of partial bowel obstruction. CT scan demonstrated a significant narrowing of the anastomosis. I recommended revision of the anastomosis of the patient. I discussed the risks, benefits, and alternatives of the operation, and the expected outcomes were reviewed. The patient elected to proceed with the operation. Description of procedure The patient was taken to the operating room and transferred to the operating table in the supine position. Pressure points were padded and SCDs were placed lower extremities. General endotracheal anesthesia was administered. The abdomen was prepped with ChloraPrep and draped sterilely. Preoperative antibiotics were administered and a timeout was performed. Midline laparotomy incision was made with scalpel. Electrocautery was used into the abdominal cavity. There was some serosanguineous fluid in the abdomen on entry but no evidence of infection. The prior extraction site in the left upper quadrant had a little bit of hematoma but there is no erythema or drainage. This was left alone. There were some adhesions in the abdomen that were taken down and the anastomosis was exposed. It appears as though the ileum had kinked slightly when the anastomosis was performed and this seemed to result in some narrowing there but I thought would be best served by revision of the anastomosis. The mesentery was divided up to a spot on the ileum that was freely mobile and the ileum was transected here with a bowel clamp and a scalpel. The transverse colon was then from the omentum and a spot on the transverse colon distal to the prior staple line was identified in the mesentery was divided here as well with the LigaSure. A bowel clamp was applied. The intervening bowel and anastomosis was sent to pathology. A side- to-side stapled anastomosis performed with 80 mm PEACE stapler and the common enterotomy and colotomy was closed with a TA 90 mm stapler. The mesenteric defect was large and was left open I ran the entire small bowel to ensure that the mesentery was not twisted and there was no evidence of twisting of the mesentery. The abdomen was washed out with 2 L of warm normal saline and the omentum was draped over the anastomosis and the bowel. The NG tube was palpated in the stomach and there was no output during the case was removed. The midline incision was closed with a running #1 PDS suture. The skin was irrigated and closed with skin clips. The left upper quadrant incision was again reinspected and there was no evidence of fluid, fluctuance, or undrained infection and this was left alone. The patient's wound was dressed sterilely and he was awake from anesthesia and transferred to recovery. Postoperative plan Await return of bowel function Anesthesia: AZRA Surgeon / Physician: Jitendra Bey Estimated blood loss: minimal Specimens: other (ileocolic anastamosis) Condition: stable Disposition: PACU Results - Labs CBC & BMP: 06/28/17 05:31 06/28/17 05:31 Discharge Plan - Discharge Medications No Action Cholecalciferol (Vitamin D3) [Vitamin D3] 1,000 unit PO QAM Krill/[place]-3/Dha/Epa/Lipids [Krill Oil 300 mg Softgel] 1 each PO DAILY HYDROcodone/ACETAMIN 7.5-325 [[place] 7.5-325] 1 tablet PO Q4H PRN #30 tablet PRN Reason: Pain Moderate (4-7) Calcium Carbonate [Calcium] 500 mg PO QAM Alendronate [Fosamax] 70 mg PO WE Pantoprazole Tab [Protonix Tab] 40 mg PO BID - Follow Up or Referral - Forms/Instructions Instructions: Low Fiber Diet (GEN), Ileus (GEN)
--- NOTE | 2017-06-28 11:21 | Anesthesia Post-Op ---
Anesthesia Post OP - Post Ansesthetic Evaluation Patient seen in post op: Yes Resp: within normal limits CV: within normal limits Mental: within normal limits Temp: within normal limits [id number]: within normal limits Nausea and Vomiting: within normal limits Pain: within normal limits
[2017-06-28] MEDS ORDERED: fentaNYL 100 MCG/2 ML VIAL ONE (11:24)
[2017-06-28] MEDS ORDERED: SEVOFLURANE 1 UNIT/15 MINUTE INH ONE (11:24)
[2017-06-28] MEDS ORDERED: PROPOFOL 200 MG/20 ML VIAL IV ONE (11:24)
[2017-06-28] MEDS ORDERED: HYDROmorphone 2 MG/1 ML VIAL ONE ×2 (11:24→11:45)
[2017-06-28] MEDS ORDERED: MIDAZOLAM 2 MG/2 ML VIAL ONE (11:24)
[2017-06-28] MEDS ORDERED: SUCCINYLCHOLINE 200 MG/10 ML VIAL ONE (11:25)
[2017-06-28] MEDS ORDERED: ROCURONIUM 100 MG/10 ML VIAL IV ONE (11:25)
[2017-06-28] MEDS ORDERED: ONDANSETRON 4 MG/2 ML VIAL ONE ×2 (11:25→11:43)
[2017-06-28] MEDS ORDERED: LACTATED RINGERS 1,000 ML IV ONE (11:25)
[2017-06-28] MEDS ORDERED: GLYCOPYRROLATE 0.4 MG/2 ML VIAL ONE (11:25)
[2017-06-28] MEDS ORDERED: NEOSTIGMINE 10 MG/10 ML VIAL ONE (11:25)
[2017-06-28] MEDS ORDERED: HYDROCORTISONE 100 MG VIAL ONE (11:25)
[2017-06-28] MEDS ORDERED: KETOROLAC 30 MG/1 ML VIAL IV SCH (11:30)
[2017-06-28] MEDS ORDERED: HYDROmorphone 2 MG/1 ML VIAL IV PRN (11:45)
--- NOTE | 2017-06-28 12:03 | CT Report ---
History: Nausea and abdominal pain postop Date: 06/28/2017 Study: CT abdomen and pelvis with IV contrast Comparison exam: June 15, 2017 Technique: Spiral CT sections were obtained from the lung bases to the pubic symphysis following oral contrast and 100 mL Omnip[address] abdomen: There is minimal right greater than left pleural effusion. There is abnormal cylindrical filling defect within right middle lobe and right lower lobe pulmonary arterial branches compatible with acute pulmonary embolic disease. Critical test result. Dr. Bey was notified of this finding at the time of dictation, 11:45 AM. There is no evidence of pneumoperitoneum. There is mild perihepatic free fluid. There is mild diffuse fatty infiltration of the liver. The liver, spleen, pancreas, bile ducts, fluid-filled gallbladder, and adrenal glands are unremarkable. There is bilateral renal excretion without hydronephrosis. There is a 7.3 cm simple cyst in the mid to lower right kidney. There is no aortic aneurysm. There is some disproportionate small bowel obstruction compatible with some functional mild small bowel obstruction, likely at or near the anastomotic site. The colon is normal in caliber. There is no intra-abdominal abscess. There is an abnormal confined fluid collection in the anterior abdominal wall to the left of midline just inferior to the level of the rib cage, measuring 21 x 72 mm. This is a small air bubble in this area as well. This could represent recently postsurgical seroma, though superimposed infection cannot be excluded. There is grade 2 or 3 anterolisthesis of L5 with respect to S1 as before. There has been previous surgical fusion surgery at L4-L5 and L5-S1. There is old bilateral pars defect at L5. CT pelvis: There is moderate distention of the urinary bladder. There is no new pelvic mass or abnormal pelvic fluid collection The CT exam was performed using one or more of the following dose reduction techniques: Automated exposure control, adjustment of the mA and/or kV according to patient size, or use of iterative reconstruction technique. Impression: There is evidence of acute pulmonary embolic disease in the right lower lung as discussed with Dr. Bey Partial small bowel obstruction Postsurgical fluid collection anterior upper abdominal wall to the left of midline with or without superimposed infection PROCEDURE INTERPRETED AT [facility] DEPARTMENT OF RADIOLOGY Final Report Signed by: Dr. Angely Whyte
[2017-06-28] MEDS ORDERED: NALOXONE 0.4 MG/ML VIAL IV PRN (12:55)
[2017-06-28] MEDS: ERTAPENEM 1,000 MG in SODIUM CHLORIDE 0.9% 50 ML IV SCH (13:02)
[2017-06-28] MEDS: ALVIMOPAN 12 MG CAPSULE PO SCH ×2 (13:03→21:09)
--- NOTE | 2017-06-28 13:44 | Event Note ---
I was notified by Dr. Whyte regarding a PE that was seen on the CT scan of the abdomen and pelvis and the lower lobe pulmonary branches. This was discussed with the patient and his . We will start a heparin drip shortly. There is a slight risk of bleeding with heparin infusion but it can be turned off quickly if needed and I think that the risk is justified by the benefit of anticoagulation in a patient with a newly diagnosed pulmonary embolism. This was discussed in detail with the patient and his and they are in agreement.
[2017-06-28] MEDS: HYDROmorphone PCA 30 MG/30 ML SYRINGE IV SCH (13:47)
[2017-06-28 13:51] LABS: Hemoglobin 10.5 GM/DL (14.0-18.0)
[2017-06-28 14:07] LABS: Partial Thromboplastin Time 26.9 SECS (0-40)
[2017-06-28] MEDS: HEPARIN DRIP 25,000 UNITS/500 ML PREMIX IV SCH (17:04)
[2017-06-28 19:08] LABS: Hematocrit 34.3 VOL% (42.0-52.0)
[2017-06-28 23:17] LABS: INR 1.1; PT Patient Result 11.6 SECS; Partial Thromboplastin Time 56.5 SECS (0-40)
[2017-06-29 01:32] LABS: Basophils % 0.3 % (0.0-0.8); Eosinophils % 0.1 % (0.00-10.9); Hematocrit 32.9 VOL% (42.0-52.0); Hemoglobin 10.6 GM/DL (14.0-18.0); Immature Granulocytes % 0.5 %; Immature Granulocytes Absolute 0.06 #; Lymphocytes # 1.5 10*3/uL (1.4-4.0); Lymphocytes % 11.3 % (21.2-54.2); Mean Corpuscular HGB Conc 32.2 GM/DL (32-36); Mean Corpuscular Hemoglobin 26 PG (27-34); Mean Corpuscular Volume 79.5 FL (87-102); Mean Platelet Volume 9.6 FL (9.6-12.0); Monocytes # 0.6 10*3/uL (0.11-0.8); Neutrophils # 10.7 10*3/uL (1.4-7.4); Neutrophils % 82.8 % (38.7-73.9); Platelet Count 229 T/CUMM (130-400); Red Blood Count 4.14 MC/CUMM (3.8-5.5); Red Cell Distribution Width 14.5 % (9.3-17.3); White Blood Count 12.9 T/CUMM (4-12)
[2017-06-29 02:05] LABS: Calcium 6.9 MG/DL (8.5-10.1); Osmolality,Calculated 275.7 MOS/KG (273-304); Potassium 4.2 MMOL/L (3.5-5.1)
[2017-06-29] MEDS: DEXTROSE 5% NACL 0.45% 1,000 ML IV SCH ×4 (05:29→23:35)
[2017-06-29 06:38] LABS: INR 1.2; PT Patient Result 12.7 SECS
[2017-06-29 06:39] LABS: Partial Thromboplastin Time 56.1 SECS (0-40)
[2017-06-29] MEDS: HEPARIN DRIP 25,000 UNITS/500 ML PREMIX IV SCH ×2 (08:36→23:14)
[2017-06-29] MEDS: PANTOPRAZOLE 40 MG VIAL IV SCH (08:38)
[2017-06-29] MEDS: ALVIMOPAN 12 MG CAPSULE PO SCH ×2 (08:38→20:41)
[2017-06-29 10:26] LABS: Hematocrit 32.3 VOL% (42.0-52.0); Hemoglobin 10.3 GM/DL (14.0-18.0)
--- NOTE | 2017-06-29 10:27 | Event Note ---
General surgery progress note Chief complaint Patient is a 62-year-old male status post robotic assisted laparoscopic right colectomy for colon cancer on 06/21/2017 who required readmission for possible ileus and underwent laparotomy with revision of ileocolic anastomosis secondary to stricture on 06/28/2017. Interval history Overnight, the patient required in and out catheterization due to failure to void was 700 cc output. He is reporting this morning he has not voided since that time. His pain is controlled with CHIEF I DISPATCHER pump. He continues with a heparin drip for PE and continues on ertapenem IV. It is unclear whether he is passing flatus yet. He is tolerating sips without nausea or vomiting. Objective Afebrile overnight; tachycardia noted to 115 bpm; otherwise vital signs stable Heart: Regular rhythm; mild tachycardia Lungs: Clear to auscultation bilaterally Abdomen: Protuberant abdomen. Surgical dressing with minimal dried drainage. Left lateral incision induration is unchanged; no erythema is noted. Hypoactive bowel sounds. Extremities: Calves are soft and nontender Labs: CBC WBC 10.12.9, hemoglobin 10.6, hematocrit 32.9, platelets 229 PTT 56 BMP unremarkable except calcium 6.9; previous albumin noted at 3.0 Assessment and plan Patient is postop day #1 status post laparotomy with ileocolic anastomosis revision. - continue with sips - continue ertapenem; monitor cbc and incisions - continue CHIEF I DISPATCHER today - continue IVF - continue entereg - encourage IS Pulmonary embolism - continue heparin drip with pharmacy consultation; monitor PTT - h/h stable - continue to monitor - consider transitioning to oral anticoagulants as patient continues to improve Urinary retention - no h/o known bph - insert burns catheter and send UA - start flomax - c/s urology Hypocalcermia - chronic - oral supplementation - restart home meds - monitor GI ppx: PPI daily
[2017-06-29 10:32] LABS: INR 1.1
[2017-06-29] MEDS: ERTAPENEM 1,000 MG in SODIUM CHLORIDE 0.9% 50 ML IV SCH (11:29)
[2017-06-29] MEDS ORDERED: NON-FORMULARY MEDICATION (Calcium Carbonate [Calcium] 500 MG) PO SCH (11:45)
[2017-06-29] MEDS: TAMSULOSIN 0.4 MG CAPSULE PO SCH (12:13)
[2017-06-29] MEDS: CHOLECALCIFEROL 1,000 UNIT TABLET PO SCH (12:13)
[2017-06-29] MEDS: CALCIUM (CARBONATE) 600 MG TABLET PO SCH ×2 (12:13→20:41)
[2017-06-29 12:20] LABS: Apearance,Urine CLEAR (Clear); Bilirubin,Urine Negative (Negative); Blood, Urine Small mg/dL (Negative); Glucose,Urine (UA) Negative (Negative); Ketones,Urine Negative (Negative); Mucus,Urine Occasional /LPF (Occasional); Nitrite,Urine Negative (Negative); Protein,Urine 30 MG/DL; RBC,Urine <1 /HPF (0-4); Urine Color Amber (Yellow); Urine Specific Gravity 1.026 (1.001-1.035); Urine Urobilinogen < 2.0 EU/DL (0.2-1.0); WBC,Urine <1 /HPF (0-6)
--- NOTE | 2017-06-29 12:24 | Pathology Report from [facility] ---
[facility] [place] ACCESSION # : [id number] PATIENT NAME : Vikram Henao ORDERING DR : Jitendra Bey MD CLINICAL HX: Narrowing of ileocolic anastomosis POST-OP DX: Same SPECIMEN INFO: Ileocolic anastomosis GROSS DESCRIPTION: The specimen is received in formalin labeled with the patients name VIKRAM HENAO and consists of an ileocolectomy including portions of small bowel (7.5 x 2.5 cm) and colon (7.9 cm x up to 3.0 cm) with an area of anastomosis (1.4 cm). The anastomosis lumen is markedly narrowed and probe patent There is a 1.5 cm transmural defect in the colon tissue with surrounding thickened mucosa measuring up to 2.0 cm. The serosa is erythematous. No masses or tumor identified. Received separately in the container is a 15.0 cm x up to 1.9 cm strip of shaggy erythematous ku mucosal tissue with stapled lines present with no masses identified. Sections submitted : A proximal margin, B distal margin, C tissue and area of anastomosis, D firm fibrotic tissue with area of defect in colon and colonic tissue, E international sales representative extra mucosal tissue. DIAGNOSIS FOR VIKRAM HENAO: ILEOCOLIC ANASTOMOSIS, RESECTION: Benign colonic mucosa with markedly narrowed anastomotic site and adjacent lamina propria hemorrhage and edema. Margins viable. No tumor seen. COLLECTED DATE: 06/28/2017 [facility] REPORT DATE: 06/29/2017 ELECTRONICALLY SIGNED BY: Beverly Osborne M.D. 06/29/2017 - 11:24:48 CINDY
[2017-06-29] MEDS: HYDROmorphone PCA 30 MG/30 ML SYRINGE IV SCH (14:31)
[2017-06-29 17:03] LABS: Hematocrit 29.1 VOL% (42.0-52.0); Hemoglobin 9.5 GM/DL (14.0-18.0)
[2017-06-29 17:14] LABS: INR 1.1; PT Patient Result 11.9 SECS; Partial Thromboplastin Time 78.4 SECS (0-40)
[2017-06-29] MEDS: ACETAMINOPHEN 325 MG TABLET PO PRN (18:23)
--- NOTE | 2017-06-29 19:41 | Urology Consultation ---
Assessment and Plan - Time spent with patient Time spent with patient: Less than 30 minutes (1) Postoperative urinary retention Status: Acute Assessment and plan: Patient has urinary retention postoperatively. He does have a ileus. Agree with Nash catheter placement. With leave this down for at least a couple days. Hopefully he can mobilize, and this will help. Once mobilizing, would remove catheter and start intermittent catheterization post void. If PVR is less than 200, then stop catheterizing. Current Visit: Yes (2) Enlarged prostate with urinary retention Status: Acute Assessment and plan: Agree with Flomax 0.4 mg nightly Start finasteride 5 mg daily. Thanks for the opportunity to participate in the care of this patient. We will follow while inpatient. Current Visit: Yes History of Present Illness - Data of Consult Patient: new to practice Consult date: 06/29/17 - Consult Narrative History of present illness: Mr. Mtz is a 62 year old male who has an unfortunate situation with colon cancer. He had prior surgery in [facility] in June of last year. He returned with obstruction last week. He is now being readmitted with vomiting and concern for "blood clots". He was noted to have difficulty voiding with minimal urine output postoperatively. He reports he had a similar episode last year. He has not had any voiding problems typically. He reports a good stream with no hesitancy, urgency, urinary frequency, severe nocturia (1-2 times). Denies any gross hematuria. He notes this was acute in onset. It seemed to worsen. He thinks lying flat made it worse. He does follow with Dr. Bro Hook who obtains a PSA regularly. He reports no recent BOO. No significant urologic family history. He had a Nash catheter placed after PVR demonstrated over 700 cc. He was started on Flomax by the general surgery service. Urology was consulted. CC: Jitendra Bey MD Urinary retention - Home Medications and Allergies Home Medications: Home Medications Medication Instructions Recorded Confirmed Type Alendronate [Fosamax] 70 mg PO WE 06/11/17 06/25/17 History Calcium Carbonate [Calcium] 500 mg PO QAM 06/11/17 06/25/17 History Cholecalciferol (Vitamin D3) 1,000 unit PO QAM 06/11/17 06/25/17 History [Vitamin D3] Krill/[place]-3/Dha/Epa/Lipids 1 each PO DAILY 06/18/17 06/25/17 History [Krill Oil 300 mg Softgel] HYDROcodone/ACETAMIN 7.5-325 1 tablet PO Q4H PRN #30 tablet 06/22/17 06/25/17 Rx [[place] 7.5-325] Pantoprazole Tab [Protonix Tab] 40 mg PO BID 06/25/17 06/25/17 History Allergies/Adverse Reactions: Allergies Allergy/AdvReac Type Severity Reaction Status Date / Time Erythromycin Base Allergy Intermediate RASH MOUTH Verified 06/25/17 18:10 Medical,Surgical,& Family Hx - Medical History Cardio: No history of: Hypertension Neurology: No history of: Seizures HEENT: History of: Eye Problem (GLASSES), Dental Problems (CAPPED TEETH.) Endocrine: History of: Dyslipidemia (SLIGHT ELEVATION.), Endocrine Problems ( LOW BLOOD SUGAR.) No history of: Diabetes Mellitus (IDDM), Diabetes Mellitus (NIDDM) Respiratory: History of: Pneumonia (ASPIRATION PNEU AFTER COLONOSCOPY 06/11/2017.) , Respiratory Problems (FLU VAC-YES 2015; PNEU VAC-NO.) No history of: Asthma Renal: No history of: Renal Failure, Renal Problems Gastrointestinal: History of: GERD, Polyps, Gastrointestinal Cancer, GI Problems (hiatal hernia) No history of: Gastrointestinal Bleed Musculoskeletal: History of: Back/Neck Problems, Osteoporosis Other: History of: Anesthesia Reactions (SEVERE NAUSEA AND VOMITING.), Cancer ( COLON CA) - Surgical History HEENT Surgeries: Surgical HX of: Tonsilectomy & Adenoidectomy Abdominal Surgeries: Surgical HX of: Abdominal Surgery (colectomy), Colonoscopy , EGD Orthopedic Surgeries: Surgical HX of;: Implanted Devices (TITIANIUM IN BACK.), Orthopedic Surgery (right shoulder surgery 2011 at [place]), Spinal Surgery (back surgery 06/07/2015) - Family History Family History: Reports;: Family Cancer (father-prostate), Family Diabetes ( father), Family Heart Disease (father) - Social History Smoking Status: Never smoker Frequency of Alcohol Use: None Type of Drug Use: None - Constitutional Constitutional: Present: anorexia, fatigue - EENT Eyes: Present: blurry vision (Itchy eyes) Nose, mouth and throat: Absent: dysphagia, epistaxis - Cardiovascular Cardiovascular: Present: dyspnea - Respiratory Respiratory: Present: dyspnea. Absent: hemoptysis, snoring - Gastrointestinal Gastrointestinal: Present: abdominal pain, nausea, vomiting, other (History of colon cancer) - Genitourinary Genitourinary: Present: difficulty urinating. Absent: flank pain, hematuria - Musculoskeletal Musculoskeletal: Absent: arthralgias, back pain - Neurological Neurological: Absent: abnormal speech, behavioral changes, confusion - Psychiatric Psychiatric: Absent: anxiety, auditory hallucinations, confusion - Endocrine Endocrine: Absent: cold intolerance, heat intolerance - Hematologic/Lymphatic Hematologic/Lymphatic: Absent: easy bleeding, easy bruising Exam - Constitutional Vitals: Period Temp Pulse Resp BP Sys/Domingo Pulse Ox Last 24 Hr 98.8 F-100.5 F 110-115 18-20 126-140/67-84 92-98 General appearance: mild distress - Head Head exam: Present: normocephalic, atraumatic - Eye Eye exam: Absent: scleral icterus - ENT ENT exam: Present: normal oropharynx - Neck Neck exam: Present: normal inspection. Absent: lymphadenopathy - Respiratory Respiratory exam: Absent: accessory muscle use, stridor, wheezes - Cardiovascular Cardiovascular exam: Present: regular rate and rhythm. Absent: JVD - GI/Abdominal GI/Abdominal exam: Present: distended. Absent: rebound - Genitourinary Genitourinary: scrotum without lesions, cysts, edema or rash, penis with no lesions or discharge, diffusely enlarged prostate without tenderness (40 g approximate size), other (Nash catheter in place draining clear urine) - Extremities Exam Extremities exam: Present: normal capillary refill - Back Exam Back exam: Absent: CVA tenderness (L), CVA tenderness (R) - Neurological Exam Neurological exam: Present: alert, oriented X3 - Psychiatric Psychiatric exam: Present: normal affect, normal mood - Skin Skin exam: Present: warm, dry Results - Labs CBC & BMP: 06/29/17 16:31 06/29/17 01:10 Lab Results: I have reviewed the past 24 hour labs Specialty Discharge - Follow Up or Referrals
[2017-06-29] MEDS: PANTOPRAZOLE 40 MG TABLET PO SCH (20:41)
[2017-06-29 22:11] LABS: INR 1.1; PT Patient Result 11.9 SECS; Partial Thromboplastin Time 91.6 SECS (0-40)
[2017-06-30 05:29] LABS: INR 1.1; PT Patient Result 11.8 SECS
[2017-06-30 05:40] LABS: Basophils % 0.4 % (0.0-0.8); Eosinophils # 0.2 10*3/uL (0.0-0.87); Eosinophils % 2.6 % (0.00-10.9); Hematocrit 27.6 VOL% (42.0-52.0); Hemoglobin 8.9 GM/DL (14.0-18.0); Immature Granulocytes % 0.4 %; Immature Granulocytes Absolute 0.03 #; Lymphocytes # 0.8 10*3/uL (1.4-4.0); Lymphocytes % 10.7 % (21.2-54.2); Mean Corpuscular HGB Conc 32.2 GM/DL (32-36); Mean Corpuscular Hemoglobin 26 PG (27-34); Mean Corpuscular Volume 79.1 FL (87-102); Mean Platelet Volume 10.5 FL (9.6-12.0); Monocytes # 0.6 10*3/uL (0.11-0.8); Monocytes % 8.2 % (1.7-12.7); Neutrophils % 77.7 % (38.7-73.9); Platelet Count 273 T/CUMM (130-400); Red Blood Count 3.49 MC/CUMM (3.8-5.5); Red Cell Distribution Width 14.5 % (9.3-17.3); White Blood Count 7.7 T/CUMM (4-12)
[2017-06-30 05:42] LABS: Partial Thromboplastin Time 87.4 SECS (0-40)
[2017-06-30 05:50] LABS: Albumin 1.8 G/DL (3.4-5.0); Bilirubin,Total 1.1 MG/DL (0.2-1.0); Calcium 7.5 MG/DL (8.5-10.1); Potassium 4.1 MMOL/L (3.5-5.1); Total Protein 4.8 G/DL (6.4-8.3)
[2017-06-30 06:58] LABS: Band Neutrophils 1 % (0-10); Eosinophils 3 % (0-10); Hypochromasia 1+; Lymphocytes 9 % (20-55); Microcytosis 1+; Segmented Neutrophils 83 % (50-85); Total Cells Counted 100
[2017-06-30 06:59] LABS: Platelet Estimate Normal
[2017-06-30] MEDS: CALCIUM (CARBONATE) 600 MG TABLET PO SCH ×2 (10:43→21:08)
[2017-06-30] MEDS: FINASTERIDE 5 MG TABLET PO SCH (10:44)
[2017-06-30] MEDS: ALVIMOPAN 12 MG CAPSULE PO SCH ×2 (10:44→21:08)
[2017-06-30] MEDS: CHOLECALCIFEROL 1,000 UNIT TABLET PO SCH (10:45)
[2017-06-30] MEDS: TAMSULOSIN 0.4 MG CAPSULE PO SCH (10:45)
[2017-06-30] MEDS: PANTOPRAZOLE 40 MG TABLET PO SCH ×2 (10:45→21:08)
[2017-06-30] MEDS: DEXTROSE 5% NACL 0.45% 1,000 ML IV SCH ×2 (10:52→15:23)
--- NOTE | 2017-06-30 11:15 | Order Completion Report ---
See report scanned to EMR
[2017-06-30] MEDS: ALBUTEROL 1.25 MG/3 ML NEB RESP TX PRN (11:50)
--- NOTE | 2017-06-30 12:03 | XRay Report ---
History: Wheezing Date: 06/30/2017 Study: Chest x-ray AP portable Comparison exam: June 28, 2017 The cardiac silhouette is upper normal in size. The mediastinal contours are unchanged. The pulmonary vasculature is not engorged. There is no gross pleural effusion. The exam was performed in shallow inspiration with some bronchovascular crowding in the lung bases. There is no damir pneumonia. Osseous structures are unchanged. Impression: No gross change from the previous study. Shallow inspiration with subsegmental atelectasis in the lung bases PROCEDURE INTERPRETED AT [facility] DEPARTMENT OF RADIOLOGY Final Report Signed by: Dr. Angely Whyte
[2017-06-30] MEDS: ERTAPENEM 1,000 MG in SODIUM CHLORIDE 0.9% 50 ML IV SCH (12:09)
[2017-06-30 12:17] LABS: Hematocrit 26.4 VOL% (42.0-52.0); Hemoglobin 8.6 GM/DL (14.0-18.0)
[2017-06-30] MEDS ORDERED: HYDROmorphone 2 MG/1 ML VIAL IV PRN (12:28)
--- NOTE | 2017-06-30 12:36 | Event Note ---
General surgery progress note Chief complaint Patient is a 62-year-old male status post robotic assisted laparoscopic right colectomy for colon cancer on 06/21/2017 who required readmission for possible ileus and underwent laparotomy with revision of ileocolic anastomosis secondary to stricture on 06/28/2017. Interval history Patient reports he is experiencing wheeze this morning. He has no pulmonary history or history of similar problems. He has gotten out of bed and is coughing up clear sputum; reports compliance with incentive spirometry. His pain is controlled with [employer] pump. He continues with a heparin drip for PE and continues on ertapenem IV. Passing flatus, and he is tolerating sips without nausea or vomiting. Objective Afebrile overnight; tachycardia noted to 115 bpm; otherwise vital signs stable Heart: Regular rhythm; mild tachycardia Lungs: Bilateral expiratory wheeze; no rales or rhonchi appreciated Abdomen: Protuberant abdomen. Surgical incision is clean, dry and intact. Left lateral incision induration is improved without erythema. Bowel sounds present in all 4 quadrants. Extremities: Calves are soft and nontender Labs: CBC WBC 7.7, hemoglobin 8.6, hematocrit 26.4, platelets 273 PTT 79.5 BMP unremarkable except calcium improved 7.5 Assessment and plan Patient is postop day #2 status post laparotomy with ileocolic anastomosis revision. - advance to clear liquid diet - continue ertapenem; monitor leukocytosis and incision - transition to oral pain medications with IV for breakthrough - decrease IV fluids - continue entereg - encourage IS and physical therapy Pulmonary embolism: - continue heparin drip with pharmacy consultation; monitor PTT and blood count; consider transitioning to oral anticoagulants as patient continues to improve Blood loss anemia: Repeat H&H at noon. Continue to monitor. Persistent tachycardia: Check EKG. This is not new with slight decrease in H&H. Wheeze: Suspect postoperative atelectasis. Leukocytosis and has resolved and patient has had low-grade temps with T-max of 99.9. Will check chest x-ray and provide duo nebs. Monitor. Urinary retention - no h/o known bph: Urinalysis without evidence of infection. Appreciate urology input. Will continue Nash and medication recommendations at this time. Hypocalcermia - chronic and improved. Continue oral supplementation and monitor GI ppx: PPI daily
--- NOTE | 2017-06-30 13:25 | Urology Progress Note ---
Assessment and Plan - Time spent with patient Time spent with patient: Less than 30 minutes (1) Postoperative urinary retention Status: Acute Assessment and plan: Patient has urinary retention postoperatively. He does have a ileus, but is now tolerating clear liquids.. Agree with Nash catheter placement. With leave this down for at least a couple days. Hopefully he can mobilize, and this will help. Discussed with patient that once mobilizing, we would remove catheter and start intermittent catheterization post void. If PVR is less than 200, then stop catheterizing. Hopefully this will be tomorrow. Current Visit: Yes (2) Enlarged prostate with urinary retention Status: Acute Assessment and plan: Agree with Flomax 0.4 mg nightly Started finasteride 5 mg daily. Thanks for the opportunity to participate in the care of this patient. We will follow while inpatient. Current Visit: Yes Urology - PN: Subj Interval history: Patient reports he is doing fairly well today. He has been up with physical therapy. He ambulated some in the hallway. He is tolerating clear liquids now. Exam - Constitutional Vitals: Period Temp Pulse Resp BP Sys/Domingo Pulse Ox Last 24 Hr 98.3 F-100.5 F 100-114 18-20 114-134/64-73 94-98 General appearance: no acute distress - Head Head exam: Present: normocephalic, atraumatic - ENT ENT exam: Present: normal oropharynx - Neck Neck exam: Present: normal inspection - Respiratory Respiratory exam: Present: decreased breath sounds, wheezes - Cardiovascular Cardiovascular exam: Present: tachycardia - GI/Abdominal GI/Abdominal exam: Present: distended. Absent: rebound - Genitourinary Genitourinary: scrotum without lesions, cysts, edema or rash, penis with no lesions or discharge, other (Nash catheter in place draining clear urine) - Back Exam Back exam: Present: normal inspection, CVA tenderness (R) - Neurological Exam Neurological exam: Present: alert, oriented X3 - Psychiatric Psychiatric exam: Present: normal affect, normal mood - Skin Skin exam: Present: warm, dry Results - Labs CBC & BMP: 06/30/17 11:56 06/30/17 04:41 Lab Results: I have reviewed the past 24 hour labs Specialty Discharge - Follow Up or Referrals
[2017-06-30] MEDS: HEPARIN DRIP 25,000 UNITS/500 ML PREMIX IV SCH (15:42)
[2017-06-30 19:43] LABS: Hematocrit 24.9 VOL% (42.0-52.0); Hemoglobin 8.2 GM/DL (14.0-18.0)
--- NOTE | 2017-07-01 06:49 | Urology Progress Note ---
Assessment and Plan - Time spent with patient Time spent with patient: Less than 30 minutes (1) Postoperative urinary retention Status: Acute Assessment and plan: Patient has urinary retention postoperatively. He does have a ileus, but is now tolerating clear liquids. As long as general surgery is okay with it, we will discontinue Nash catheter today. Discussed with patient that we would remove catheter and start intermittent catheterization post void. If PVR is less than 200, then stop catheterizing. Current Visit: Yes (2) Enlarged prostate with urinary retention Status: Acute Assessment and plan: Continue Flomax 0.4 mg nightly and finasteride 5 mg daily. Thanks for the opportunity to participate in the care of this patient. We will follow while inpatient. Current Visit: Yes Urology - PN: Subj Interval history: Patient reports he is tolerating oral intake. He had an liquid bowel movement overnight. His abdomen is less distended. He was able to get up yesterday with physical therapy. He has tolerated Flomax and finasteride well. Exam - Constitutional Vitals: Period Temp Pulse Resp BP Sys/Domingo Pulse Ox Last 24 Hr 99.0 F-99.6 F 100-111 18-20 115-132/54-68 95-98 General appearance: no acute distress - Head Head exam: Present: normocephalic, atraumatic - Eye Eye exam: Absent: scleral icterus - ENT ENT exam: Present: normal oropharynx - Neck Neck exam: Present: normal inspection. Absent: lymphadenopathy - Respiratory Respiratory exam: Present: decreased breath sounds. Absent: stridor - Cardiovascular Cardiovascular exam: Present: regular rate and rhythm. Absent: JVD - GI/Abdominal GI/Abdominal exam: Present: distended, tenderness (Appropriate tenderness), soft. Absent: rebound - Genitourinary Genitourinary: scrotum without lesions, cysts, edema or rash, penis with no lesions or discharge, other (Nash catheter with clear urine, nonpalpable bladder) - Extremities Exam Extremities exam: Present: normal capillary refill - Back Exam Back exam: Absent: CVA tenderness (L), CVA tenderness (R) - Neurological Exam Neurological exam: Present: alert, oriented X3 - Psychiatric Psychiatric exam: Present: normal affect, normal mood - Skin Skin exam: Present: warm, dry Results - Labs CBC & BMP: 06/30/17 19:36 06/30/17 04:41 Lab Results: I have reviewed the past 24 hour labs Specialty Discharge - Follow Up or Referrals
[2017-07-01] MEDS: ALBUTEROL 1.25 MG/3 ML NEB RESP TX PRN (07:57)
[2017-07-01 08:19] LABS: Hematocrit 25.6 VOL% (42.0-52.0); Hemoglobin 8.5 GM/DL (14.0-18.0)
[2017-07-01] MEDS: HEPARIN DRIP 25,000 UNITS/500 ML PREMIX IV SCH ×3 (08:20→22:54)
[2017-07-01] MEDS: DEXTROSE 5% NACL 0.45% 1,000 ML IV SCH (08:22)
[2017-07-01] MEDS: PANTOPRAZOLE 40 MG TABLET PO SCH ×2 (08:34→21:05)
[2017-07-01] MEDS: CHOLECALCIFEROL 1,000 UNIT TABLET PO SCH (08:34)
[2017-07-01] MEDS: TAMSULOSIN 0.4 MG CAPSULE PO SCH (08:34)
[2017-07-01] MEDS: ALVIMOPAN 12 MG CAPSULE PO SCH ×2 (08:34→21:04)
[2017-07-01] MEDS: CALCIUM (CARBONATE) 600 MG TABLET PO SCH ×2 (08:34→21:05)
[2017-07-01] MEDS: FINASTERIDE 5 MG TABLET PO SCH (08:35)
--- NOTE | 2017-07-01 10:16 | Event Note ---
General surgery progress note Chief complaint Patient is a 62-year-old male status post robotic assisted laparoscopic right colectomy for colon cancer on 06/21/2017 who required readmission for possible ileus and underwent laparotomy with revision of ileocolic anastomosis secondary to stricture on 06/28/2017. Interval history Patient's weakness improved. He continues to cough up clear sputum and continues with incentive spirometry compliance. His activity levels have increased as well as he has ambulated in the scanlon today. The patient states he does not require any pain medications at this time. He is tolerating clear liquids without difficulty and has had multiple bowel movements this morning initially loose but most recently formed. He continues with a heparin drip for PE and continues on ertapenem IV. Objective Afebrile overnight; tachycardia noted to 111 bpm; otherwise vital signs stable Heart: Regular rhythm; mild tachycardia Lungs: clear to auscultation bilaterally; no wheeze, rales or rhonchi appreciated Abdomen: Protuberant abdomen. Surgical incision is clean, dry and intact with ken intact. Left lateral transverse incision induration is improved without erythema. Bowel sounds hypoactive but present in all 4 quadrants. Extremities: Calves are soft and nontender Labs: Hemoglobin 8.5 hematocrit 25.6 PTT 65.4 Assessment and plan Patient is postop day #3 status post laparotomy with ileocolic anastomosis revision. - advance to full liquid diet - d/c burns catheter - continue ertapenem - analgesics as needed - continue IV fluids - continue entereg - encourage IS Pulmonary embolism: - continue heparin drip with pharmacy consultation; monitor PTT and blood count; consider transitioning to oral anticoagulants as patient continues to improve Blood loss anemia: Stable. Persistent tachycardia: H&H is stable. Regular rhythm and unchanged; likely associated with PE. Wheeze: Resolved. Chest x-ray with atelectasis. Continued as needed duo nebs. Urinary retention - no h/o known bph: Agree with discontinuing Burns catheter GI ppx: PPI daily
[2017-07-01] MEDS: ERTAPENEM 1,000 MG in SODIUM CHLORIDE 0.9% 50 ML IV SCH (14:15)
--- NOTE | 2017-07-02 07:38 | Urology Progress Note ---
Assessment and Plan (1) Postoperative urinary retention Status: Acute Assessment and plan: AUR resolved cont Flomax and finasteride stop PVR/bladder scans Current Visit: Yes (2) Enlarged prostate with urinary retention Status: Acute Assessment and plan: Continue Flomax 0.4 mg nightly and finasteride 5 mg daily. f/u 2 weeks after discharge in Urology clinic Thanks for the opportunity to participate in the care of this patient. Please call with questions. Current Visit: Yes Urology - PN: Subj Interval history: Nash catheter out and he is voiding well. He reports no problems with his stream on Flomax. He is tolerating Flomax finasteride well. His PVRs have been low. Exam - Constitutional Vitals: Period Temp Pulse Resp BP Sys/Domingo Pulse Ox Last 24 Hr 98.0 F-99.5 F 88-107 18-20 116-155/53-78 92-99 General appearance: no acute distress - Head Head exam: Present: normocephalic - Eye Eye exam: Absent: scleral icterus - ENT ENT exam: Present: normal oropharynx - Respiratory Respiratory exam: Absent: accessory muscle use, stridor - Cardiovascular Cardiovascular exam: Present: other (Warm, well-perfused) - Genitourinary Genitourinary: scrotum without lesions, cysts, edema or rash, penis with no lesions or discharge - Back Exam Back exam: Absent: CVA tenderness (L), CVA tenderness (R) - Neurological Exam Neurological exam: Present: alert, oriented X3 - Psychiatric Psychiatric exam: Present: normal affect, normal mood - Skin Skin exam: Present: warm, dry Results - Labs CBC & BMP: 07/01/17 08:02 06/30/17 04:41 Lab Results: I have reviewed the past 24 hour labs Specialty Discharge - Follow Up or Referrals Follow up with: Nolan Avalos MD [Physician] - 2 Weeks
[2017-07-02 07:39] LABS: Basophils % 0.4 % (0.0-0.8); Eosinophils # 0.4 10*3/uL (0.0-0.87); Eosinophils % 5.2 % (0.00-10.9); Hemoglobin 8.6 GM/DL (14.0-18.0); Immature Granulocytes % 0.4 %; Immature Granulocytes Absolute 0.03 #; Lymphocytes # 1.2 10*3/uL (1.4-4.0); Lymphocytes % 16.8 % (21.2-54.2); Mean Corpuscular HGB Conc 31.9 GM/DL (32-36); Mean Corpuscular Hemoglobin 25 PG (27-34); Mean Corpuscular Volume 79.6 FL (87-102); Mean Platelet Volume 10.2 FL (9.6-12.0); Monocytes # 0.5 10*3/uL (0.11-0.8); Monocytes % 6.2 % (1.7-12.7); Neutrophils # 5.2 10*3/uL (1.4-7.4); Platelet Count 336 T/CUMM (130-400); Red Blood Count 3.39 MC/CUMM (3.8-5.5); Red Cell Distribution Width 14.6 % (9.3-17.3); White Blood Count 7.4 T/CUMM (4-12)
--- NOTE | 2017-07-02 08:38 | XRay Report ---
XR chest 2V Date: 07/02/2017 4:00 AM History: Cough Comparison: 06/30/2017 Technique: PA and lateral chest Findings: The heart is normal in size. Persistent relative elevation of the right hemidiaphragm. Atelectasis/minimal infiltration at the lung bases with small pleural effusions. Stable mediastinum and osseous structures. Impression: Residual minimal atelectasis/infiltration at the lung bases with small pleural effusions. Minimal relative elevation of the right hemidiaphragm. PROCEDURE INTERPRETED AT [facility] DEPARTMENT OF RADIOLOGY Final Report Signed by: Dr. Magy Charles
[2017-07-02] MEDS: HEPARIN DRIP 25,000 UNITS/500 ML PREMIX IV SCH (09:47)
[2017-07-02] MEDS: CALCIUM (CARBONATE) 600 MG TABLET PO SCH (09:48)
[2017-07-02] MEDS: CHOLECALCIFEROL 1,000 UNIT TABLET PO SCH (09:48)
[2017-07-02] MEDS: TAMSULOSIN 0.4 MG CAPSULE PO SCH (09:48)
[2017-07-02] MEDS: FINASTERIDE 5 MG TABLET PO SCH (09:48)
[2017-07-02] MEDS: PANTOPRAZOLE 40 MG TABLET PO SCH (09:48)
[2017-07-02] MEDS: ALVIMOPAN 12 MG CAPSULE PO SCH (09:48)
--- NOTE | 2017-07-02 10:16 | Event Note ---
General surgery progress note Chief complaint Patient is a 62-year-old male status post robotic assisted laparoscopic right colectomy for colon cancer on 06/21/2017 who required readmission for possible ileus and underwent laparotomy with revision of ileocolic anastomosis secondary to stricture on 06/28/2017. Interval history Patient continues to improve with less wheezing wheezing and improved shortness of breath. He has tolerated his full liquid diet without nausea or vomiting and continues to have soft bowel movements. Voiding without difficulty. He continues with a heparin drip for PE and continues on ertapenem IV. Objective Afebrile overnight; tachycardia noted to 105 bpm; otherwise vital signs stable Heart: Regular rhythm; mild tachycardia Lungs: clear to auscultation bilaterally; no wheeze, rales or rhonchi appreciated Abdomen: Protuberant abdomen. Surgical incision is clean, dry and intact with ken intact. Left lateral transverse incision induration is improved without erythema. Bowel sounds hypoactive but present in all 4 quadrants. Extremities: Calves are soft and nontender Labs: Hemoglobin 8.6 hematocrit 27 PTT 118 CXR stable with persistent basilar atelectasis Assessment and plan Patient is postop day #4 status post laparotomy with ileocolic anastomosis revision. - advance to low residue diet - continue ertapenem - analgesics as needed - continue entereg - encourage IS Pulmonary embolism: - continue heparin drip with pharmacy consultation will likely transition to oral anticoagulation today Blood loss anemia: Stable. Persistent tachycardia: improving; likely associated with PE. Wheeze: improved. Chest x-ray with unchanged atelectasis. Continued as needed duo nebs. Urinary retention - resolved. Continue meds recommended by urology. GI ppx: PPI daily
[2017-07-02] MEDS: ERTAPENEM 1,000 MG in SODIUM CHLORIDE 0.9% 50 ML IV SCH (12:07)
--- NOTE | 2017-07-02 13:15 | Discharge Summary ---
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 Postoperatively, a pulmonary embolism was identified and the patient was started on a heparin drip. His H&H was monitored and stable. He was oxygenating well at the time of discharge. He was ultimately started on Eliquis and discharged on this new medication. He also expressed postoperative retention and required Nash be replaced postoperatively and he was started on finasteride and Flomax per urology; he was voiding without difficulty the time of discharge. He was discharged with these medications and recommend follow with Dr. Avalos in 2 weeks. From a surgical standpoint, he was tolerating low residue diet without nausea or vomiting, had adequate pain control, and was passing bowels at the time of discharge. Follow Dr. Bey was scheduled. he was discharged home in good condition. Diagnosis - Discharge Diagnosis (1) Partial bowel obstruction Status: Acute (2) Pulmonary embolism Status: Acute (3) Enlarged prostate with urinary retention Status: Acute (4) Postoperative ileus Status: Acute (5) Postoperative urinary retention Status: Acute Specialty Discharge - Follow Up or Referrals Follow up with: Jitendra Bey MD [Physician] - (keep previously established appointment) Nolan Avalos MD [Physician] - 07/15/17 8:15 am Discharge Plan - Discharge Data Disposition: Disch To Home/Self Care Condition at Discharge: Stable Discharge Diet: other (Low residue diet as below) Activity: no lifting (Greater than 10 pounds; avoid aerobic activity) Hygiene: may shower Driving: not until seen by doctor Contact your physician if you experience:: fever over 101, Difficulty voiding, Redness or swelling, Nausea/Vomiting, Shortness of breath, Bleeding, pain uncontrolled by pain medications Wound / Dressing Care Instructions: Keep surgical incision clean, dry and covered. Do not soak or submerge wound. Pat wound dry. - Discharge Medications New Finasteride [Proscar] 5 mg PO DAILY #30 tablet Apixaban [Eliquis] 5 mg PO BID #73 tablet HYDROcodone/ACETAMIN 7.5-325 [[place] 7.5-325] 1 tablet PO Q4H PRN #30 tablet PRN Reason: Pain Moderate To Severe (4-10) Tamsulosin [Flomax] 0.4 mg PO DAILY #30 capsule Levalbuterol Inhaler [Xopenex Inhaler] 2 puff INH Q6H PRN #1 inhaler PRN Reason: wheeze Continue Cholecalciferol (Vitamin D3) [Vitamin D3] 1,000 unit PO QAM Krill/[place]-3/Dha/Epa/Lipids [Krill Oil 300 mg Softgel] 1 each PO DAILY HYDROcodone/ACETAMIN 7.5-325 [[place] 7.5-325] 1 tablet PO Q4H PRN #30 tablet PRN Reason: Pain Moderate (4-7) Calcium Carbonate [Calcium] 500 mg PO QAM Alendronate [Fosamax] 70 mg PO WE Pantoprazole Tab [Protonix Tab] 40 mg PO BID - Follow Up or Referral Follow Up: Nolan Avalos MD [Physician] - 07/15/17 8:15 am Jitendra Bey MD [Physician] - (keep previously established appointment) - Forms/Instructions Instructions: Hydrocodone/Acetaminophen (By mouth), Finasteride (By mouth), Tamsulosin (By mouth), Apixaban (By mouth), Pulmonary Embolism (DC), Low Fiber Diet (GEN) Exam - Constitutional Vitals: Period Temp Pulse Resp BP Sys/[place] Pulse Ox Last 24 Hr 98.0 F-99.5 F 88-105 18-20 116-155/53-78 94-100 Discharge Results Procedures and tests throughout hospitalization: Pending Orders 07/02/17 16:00 PT & PTT Routine 06/25/2017 Abdominal x-ray with gas pattern indicating small bowel obstruction 06/26/2017 Abdominal x-ray with gas pattern indicating worsening small bowel obstruction 06/27/2017 CT abdomen and pelvis revealed partial small bowel obstruction; pulmonary embolism was identified in the right lower lung; distended urinary bladder identified 06/30/2017: EKG: Sinus tachycardia Chest x-ray: Bibasilar atelectasis noted; no volume overload or infiltrate identified 07/02/2017 repeat chest x-ray showed improvement with minimal remaining atelectasis Pathology report: From the ileocolic anastomosis resection there was benign colonic mucosa with narrowed anastomotic site; hemorrhage and edema noted; no tumor Labs on day of discharge: Labs from last 24 hours 07/02/17 07/02/17 08:27 06:56 WBC 7.4 RBC 3.39 L Hgb 8.6 L Hct 27.0 L MCV 79.6 L MCH 25 L MCHC 31.9 L RDW 14.6 Plt Count 336 D MPV 10.2 Neut % (Auto) 71.0 Lymph % (Auto) 16.8 L [place] % (Auto) 6.2 Eos % (Auto) 5.2 Baso % (Auto) 0.4 Neut # (Auto) 5.2 Lymph # (Auto) 1.2 L [place] # (Auto) 0.5 Eos # (Auto) 0.4 Baso # (Auto) 0.0 Immature Gran % 0.4 Nucleated RBC % 0.0 Immature Gran # 0.03 Nucleated RBCs # 0.00 Immature Plt Fraction 0.0 Circ Anticoag PTT 118.5 H* D DS: Provider Date of admission: 06/25/17 20:16 Primary care physician: Bro Lawson MD Attending physician on admission: Jitendra Bey MD Consults: 06/29/17 11:35 Consult to Physician [CONS] Routine Comment: urinary retention p/o Consulting Provider: Nolan Avalos Consulting Provider Notified: Yes When should Consulting Provider be notified: Now Person Notified: carmen glover Date Notified: 06/29/17 Time Notified: 13:04 06/29/17 11:39 Consult to Physical Therapy [CONS] Routine Reason for Physical Therapy: Evaluate and Treat Discharging clinician: Rosalba Daniel PA-C
[2017-07-02] MEDS ORDERED: APIXABAN 5 MG TABLET PO SCH (13:30)
[2017-07-02 16:14] VITALS: BP 137/75
== END 2017-07-02 16:38 | disposition home or self-care (01) | DRG 329 ==
LOC: N.ED 17:55 → N.EDINP 20:16 → N.3E 20:58
PROVIDERS: ADMIT Surgery; ATTEND Surgery